=== PATIENT | male | born 1950 | race Caucasian/White ===

== ENCOUNTER 2018-12-27 10:17 | Outpatient (CLI) | payer MEDICARE, OTHER ==
[2018-12-27] MEDS ORDERED: LISI-642 PO (16:43)
[2018-12-27] MEDS ORDERED: METF-437 PO (16:43)
[2018-12-27] MEDS ORDERED: GLIM1TAB46 PO (16:43)
[2018-12-27] MEDS ORDERED: FENO145T25 PO (16:55)
== END 2018-12-27 23:59 | disposition home or self-care (01) ==
LOC: RAD 10:17
PROVIDERS: ATTEND Surgery
DX: K57.32 Diverticulitis of large intestine without perforation or abscess without bleeding (principal); K57.12 Diverticulitis of small intestine without perforation or abscess without bleeding; Z87.891 Personal history of nicotine dependence
CPT/HCPCS: 74250